=== PATIENT | female | born 1955 | race Caucasian/White ===

== ENCOUNTER 2018-02-01 17:29 | Emergency (ER) | payer OTHER ==
[~2018-02-01] VITALS: Ht 167.6 cm; Wt 100.6 kg
[~2018-02-01 17:29] MED LIST: ACTOS45 MG PO; ASPIR-TRIN325 M1 PO; JANUVIA100 MG PO; JANUVIA25 MG PO; METOPROLOL SUCC25 MG PO; Metoprolol Succinate PO; ZESTRIL,PRINIVIL5 MG PO; Zestril,Prinivil PO
[2018-02-01 17:46] LABS: BASOPHIL (%) 0.8 % (0-1); BASOPHIL COUNT 0.1 K/uL (0-0.1); EOSINOPHIL (%) 6.9 % (0-5); EOSINOPHIL COUNT 0.9 K/uL (0-0.3); HEMATOCRIT 31.5 % (36.0-46.0); HEMOGLOBIN 10.1 G/DL (11.9-15.5); IMMATURE GRANULOCYTE (%) 0.5 % (0.0-0.7); LYMPHOCYTE (%) 23.1 % (15-42); LYMPHOCYTE COUNT 3.1 K/uL (1.0-2.8); MCH 27.4 PG (29.0-34.0); MCHC 32.1 G/DL (30.0-36.0); MCV 85.6 FL (83-99); MONOCYTE COUNT 1.2 K/uL (0-0.8); NEUTROPHIL (%) 59.7 % (45-76); PLATELET COUNT 216 K/uL (156-360); RBC DIS.WIDTH-CV 13.2 % (11.8-14.6); RBC DIS.WIDTH-SD 41.1 % (39-53); RED BLOOD COUNT 3.68 M/uL (3.80-5.20); WHITE BLOOD COUNT 13.4 K/uL (4.1-10.2)
[2018-02-01 17:59] LABS: AMYLASE 33 IU/L (1-118); CHLORIDE 103 mEq/L (99-109); INTER. NORMALIZED RATIO 1.1; POTASSIUM 4.4 mEq/L (3.7-5.4); SODIUM 138 mEq/L (136-147)
[2018-02-01 18:01] LABS: GLUCOSE 119 mg/dL (70-99); PTT 35.4 SEC (25-37)
[2018-02-01 18:04] LABS: SERUM ETHYL ALCOHOL < 10 mg/dL
[2018-02-01 18:05] LABS: CREATININE 0.7 mg/dL (0.6-1.3); GFR ESTIMATE (CALCULATED) > 59 mL/min/
[2018-02-01 18:06] LABS: UREA NITROGEN (BUN) 13 mg/dL (9-23)
[2018-02-01 18:08] LABS: LIPASE 18 U/L (1.0-51.0)
[2018-02-01 18:14] LABS: TROP-I INTERPRETATION NEGATIVE; TROPONIN-I 0.09 ng/mL (0.0-0.30)
[2018-02-01 19:23] LABS: HDL CHOLESTEROL 29 MG/DL (Desirable>=50); LDL CHOLESTEROL 51 mg/dL (Desirable<100); NON-HDL CHOLESTEROL 99 mg/dL (Desirable<160); TOTAL CHOLESTEROL 128 mg/dL (Desirable<200); TRIGLYCERIDES 240 MG/DL (Normal: <150)
[2018-02-01 19:31] LABS: HEMOGLOBIN A1c (GLYCOHEMOGLOB) 7.8 % (Below 5.7)
[2018-02-01 20:21] VITALS: BP 190/95
== END 2018-02-01 20:30 | disposition short-term general hospital (02) ==
LOC: EME 17:29
PROVIDERS: Emergency Medicine
DX: I63.8 Other cerebral infarction (principal); R47.01 Aphasia; G81.94 Hemiplegia, unspecified affecting left nondominant side; R29.810 Facial weakness; Z95.1 Presence of aortocoronary bypass graft; Z79.02 Long term (current) use of antithrombotics/antiplatelets; I10 Essential (primary) hypertension; E11.9 Type 2 diabetes mellitus without complications; I25.10 Atherosclerotic heart disease of native coronary artery without angina pectoris; R29.720 NIHSS score 20
CPT/HCPCS: 70450; 70496; 70498; 71045; 80047; 80048; 80048 91; 80061; 81003; 82150; 83036; 83690; 84484; 85025; 85610; 85730; 86850; 86900; 86901; 99281; 99285; G0480